=== PATIENT | male | born 1955 | race Caucasian/White ===

== ENCOUNTER 2016-05-12 12:04 | Emergency (ER) | payer OTHER ==
[~2016-05-12] VITALS: Ht 175.3 cm; Wt 74.8 kg
[2016-05-12 12:05] VITALS: BP 144/80
[2016-05-12] MEDS ORDERED: IBUP-1114 PO (12:20)
[2016-05-12] MEDS ORDERED: TYLE325T5 PO (12:20)
[2016-05-12] MEDS ORDERED: IBUP80TA PO (13:17)
[2016-05-12] MEDS ORDERED: ROBA500T PO (13:17)
== END 2016-05-12 14:56 | disposition home or self-care (01) ==
LOC: M ED 13:35
DX: S29.012A Strain of muscle and tendon of back wall of thorax, initial encounter (principal); X50.9XXA Other and unspecified overexertion or strenuous movements or postures, initial encounter; Y92.89 Other specified places as the place of occurrence of the external cause; Y93.B2 Activity, push-ups, pull-ups, sit-ups; Y99.8 Other external cause status; Z87.442 Personal history of urinary calculi

== ENCOUNTER 2022-03-27 14:16 | Emergency (ER) | payer MEDICARE, OTHER ==
[~2022-03-27] VITALS: Ht 175.3 cm; Wt 78.6 kg
[~2022-03-27 14:16] MED LIST: IBUP-1114 PO; IBUP80TA PO; ROBA500T PO; TYLE325T5 PO
[2022-03-27 14:18] VITALS: BP 139/86
[2022-03-27] MEDS ORDERED: CEPH500C PO ×2 (17:19→17:22)
== END 2022-03-27 17:57 | disposition home or self-care (01) ==
LOC: M ED 14:16
DX: L03.032 Cellulitis of left toe (principal)

== ENCOUNTER 2022-04-20 11:42 | Emergency (ER) | payer MEDICARE, OTHER ==
[~2022-04-20] VITALS: Ht 175.3 cm; Wt 75.0 kg
[~2022-04-20 11:42] MED LIST changes: +CEPH500C PO
[2022-04-20] MEDS ORDERED: DOXY-443 PO (16:21)
[2022-04-20 16:42] VITALS: BP 129/80
== END 2022-04-20 16:43 | disposition home or self-care (01) ==
LOC: M ED 11:42
DX: L03.031 Cellulitis of right toe (principal); Z87.442 Personal history of urinary calculi

== ENCOUNTER 2024-02-15 08:46 | Emergency (ER) | payer MEDICARE, OTHER ==
[~2024-02-15] VITALS: Ht 175.3 cm; Wt 78.2 kg
[~2024-02-15 08:46] MED LIST changes: +ATOR40TA75 PO; +CLOP75TA2 PO; +DOXY-441 PO
[2024-02-15 11:43] VITALS: BP 127/72; TEMP 98.3; O2SAT 98
== END 2024-02-15 11:45 | disposition home or self-care (01) ==
LOC: M ED 08:46
DX: S60.932A Unspecified superficial injury of left thumb, initial encounter (principal); Y92.9 Unspecified place or not applicable; Y93.9 Activity, unspecified; Y99.9 Unspecified external cause status; I10 Essential (primary) hypertension; Z79.899 Other long term (current) drug therapy